=== PATIENT | female | born 1995 | race Caucasian/White ===

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

== ENCOUNTER 2017-11-17 16:35 | Emergency (ER) | payer OTHER ==
[~2017-11-17] VITALS: Ht 160 cm; Wt 46.0 kg
[~2017-11-17 16:35] MED LIST changes: +BACT800T5 PO; -Z.0.NO CURRENT MEDS; +ZOFR4TAB3 SL
[2017-11-17 16:38] VITALS: BP 131/67; PULSE 99; RESP 18; TEMP 98.6; O2SAT 96
[2017-11-17 17:08] LABS: BILIRUBIN, URINE NEG (NEG); BLOOD, URINE NEG (NEG); GLUCOSE,URINE NEG (NEG); KETONE, URINE NEG (NEG); NITRITE,URINE NEG (NEG); PH, URINE 8.5 (5.0-8.5); URINE COLOR YELLOW (YELLW/STRAW); URINE LEUKOCYTE ESTERASE SMALL (NEG)
[2017-11-17 17:16] LABS: BACTERIA, URINE MOD /hpf; RBC, URINE 0-3 /hpf (0-3); SQUAMOUS EPITHELIAL CELL URINE > 8 /hpf (0-5)
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
[2017-11-17] MEDS ORDERED: IBUPROFEN 600 MG TAB PO ONE (19:45)
[2017-11-17 21:00] VITALS: BP 132/75; PULSE 85; RESP 16; TEMP 98.2; O2SAT 98
[2017-11-17 21:10] VITALS: O2SAT 98
[2017-11-17] MEDS ORDERED: SODIUM CHLORIDE 0.9% FLUSH 10 ML FLUSH IV FLUSH PRN (21:15)
[2017-11-17] MEDS ORDERED: DIATRIZOATE MEGLUM/DIATRIZOATE SOD 9 ML CUP ONE (21:19)
[2017-11-17 21:27] LABS: AUTOMATED NEUTROPHIL # 10.8 TH/MM3 (1.8-7.7); BASOPHIL # 0.2 TH/MM3 (0-0.2); BASOPHIL % 1.2 % (0.0-2.0); EOSINOPHIL # 0.1 TH/MM3 (0-0.4); EOSINOPHIL % 0.7 % (0.0-4.0); HEMATOCRIT 38.2 % (35.0-46.0); HEMOGLOBIN 13.1 GM/DL (11.6-15.3); LYMPH % 14.9 % (9.0-44.0); MEAN CELL VOLUME 85.7 FL (80.0-100.0); MEAN CORPUSCULAR HEMOGLOBIN 29.4 PG (27.0-34.0); MEAN CORPUSCULAR HGB CONC 34.3 % (32.0-36.0); MEAN PLATELET VOLUME 7.9 FL (7.0-11.0); MONO % 3.9 % (0.0-8.0); MONOCYTE # 0.5 TH/MM3 (0-0.9); NEUT % 79.3 % (16.0-70.0); PLATELET COUNT 231 TH/MM3 (150-450); RED BLOOD COUNT 4.45 MIL/MM3 (4.00-5.30); RED CELL DISTRIBUTION WIDTH 12.7 % (11.6-17.2); WHITE BLOOD COUNT 13.6 TH/MM3 (4.0-11.0)
[2017-11-17 21:35] LABS: CHLORIDE 104 MEQ/L (98-107); SODIUM (NA) 138 MEQ/L (136-145)
[2017-11-17 21:38] LABS: CALCIUM 8.8 MG/DL (8.5-10.1)
--- NOTE | 2017-11-17 21:38 | RADRPT ---
EXAM DATE: 11/17/2017 9:33 PM EDT AGE/SEX: 22 years / Female INDICATIONS: Pelvic pain x 12 hours. CLINICAL DATA: This is the patient's initial encounter. Patient reports that signs and symptoms have been present for 1 day and indicates a pain score of 8/10. MEDICAL/SURGICAL HISTORY: . Pelvic pain. None. COMPARISON: [facility], US PELVIS,COMP,W DOPPLER, 11/18/2016. . No external comparison. MEASUREMENTS: Uterus:__7.9 x 5.5 x 4.2 cm Endometrial Stripe:__10 mm Right Ovary:__ 4.9 x 3.7 x 2.1 cm Left Ovary:__ 3.6 x 2.3 x 2.0 cm FINDINGS: Uterus: Retroflexed. The myometrium has homogeneous echotexture without mass. Right Ovary: Ovary contains no mass or significant cystic lesion. Blood flow is documented. Left Ovary: Ovary contains no mass or significant cystic lesion. Blood flow is documented. Other: No free fluid. CONCLUSION: 1. Negative ultrasound pelvis. Electronically signed by: Zack Medina MD 11/17/2017 9:36 PM EDT
[2017-11-17 21:39] LABS: ALBUMIN 4.1 GM/DL (3.4-5.0); BICARBONATE 27.2 MEQ/L (21.0-32.0); BLOOD UREA NITROGEN 9 MG/DL (7-18); GLUCOSE,RANDOM 94 MG/DL (74-106)
[2017-11-17 21:42] LABS: ALT (GPT) 15 U/L (9-42); AST (GOT) 11 U/L (16-38); GLOMERULAR FILTRATION RATE 107 ML/MIN (>89)
[2017-11-17 21:43] LABS: TOTAL BILIRUBIN ADULT 0.8 MG/DL (0.2-1.0); TOTAL PROTEIN 7.5 GM/DL (6.4-8.2)
[2017-11-17 21:45] LABS: ALKALINE PHOSPHATASE 69 U/L (45-117)
[2017-11-17] MEDS ORDERED: IOHEXOL 350 MG/ML 10 ML VIAL (for RAD DIAG) IVCONTRAST ONE (23:19)
--- NOTE | 2017-11-17 23:38 | RADRPT ---
EXAM DATE: 11/17/2017 11:20 PM EDT AGE/SEX: 22 years / Female INDICATIONS: Low abdomen pain. CLINICAL DATA: This is the patient's initial encounter. Patient reports that signs and symptoms have been present for 1 day and indicates a pain score of 8/10. MEDICAL/SURGICAL HISTORY: . Endometriosis. Fibroids. None. ORAL CONTRAST: Prescribed oral contrast ingested. RADIATION DOSE: 4.47 CTDI (mGy) COMPARISON: No prior exams available for comparison. TECHNIQUE: Multiple contiguous axial images were obtained through the abdomen and pelvis following b olus infusion of 100 ml Omnipaque 350 (iohexol) nonionic water-soluble contrast as a single exam do se. Prescribed oral contrast ingested. Using automated exposure control and adjustment of the mA and /or kV according to patient size, the radiation dose was kept as low as reasonably achievable to obta in optimal diagnostic quality images. FINDINGS: Abdomen CT: The liver, spleen, pancreas, kidneys, adrenals are unremarkable. There is no evidence for any appreci able pathological adenopathy, free fluid, or bowel obstruction. There stomach is distended measures 15.3 cm in size. The etiology for this is not certain and possibility of gastric outlet obstruction i s not excluded. Pelvic CT: There is what appears to be a partially collapsed cyst in the right ovary measures 1.8 cm in size wit h fluid surrounding it. The patient's pelvic ultrasound however was unremarkable. The appendix is not clearly visualized, however no definite signs of appendicitis is seen. CONCLUSION: 1. Distended stomach of uncertain etiology. 2. There appears to be a partially collapsed cyst in the right ovary with slight fluid surrounding i t, however the patient's pelvic ultrasound was unremarkable and therefore these findings could potent ially be fluid-filled loops of bowel. The appendix is not clearly visualized. Electronically signed by: Bea Thomas MD 11/17/2017 11:36 PM EDT
[2017-11-18 00:11] VITALS: BP 130/71; TEMP 98.3
== END 2017-11-18 00:13 | disposition home or self-care (01) ==
LOC: PHED 16:35
DX: R10.2 Pelvic and perineal pain (principal); Z88.0 Allergy status to penicillin
CPT/HCPCS: 74177; 76856; 80053; 81001; 84703; 85025; 87086; 87210; 87491; 87591; 93975; 99285; Q9963; Q9967